=== PATIENT | male | born 1985 | race Caucasian/White ===

== ENCOUNTER → 2024-06-24 | Outpatient (REF) | payer BC ==
[2024-06-24 12:01] LABS: SEMEN APPEARANCE OPAQUE (OPAQUE); SEMEN VISCOSITY LIQUID (LIQUID); SEMEN VOLUME 0.8 ml (2.0-5.0); SEMEN pH 8.5 (7.0-8.0); WBC CONCENTRATION >1 M/ml (<=1 M/ml)
== END ==
LOC: M LAB REF 08:41
PROVIDERS: ATTEND Surgery
DX: Z98.52 Vasectomy status (principal)